=== PATIENT | female | born 1990 | race African-American/Black ===

== ENCOUNTER 2022-10-25 13:15 | Outpatient (CLI) | payer MEDICAID | END 2022-10-25 13:16 | disposition home or self-care (01) | LOC: CSHMAMMO 13:15 | PROVIDERS: ATTEND Advanced Practice Midwife | DX: N63.41 Unspecified lump in right breast, subareolar (principal); N64.89 Other specified disorders of breast | CPT/HCPCS: 77066; G0279 ==

== ENCOUNTER 2022-10-25 15:29 | Emergency (ER) | payer MEDICAID, SELFPAY ==
[2022-10-25] MEDS ORDERED: Acetaminophen/Codeine 30-300mg Tablet ONE (16:13)
== END 2022-10-25 16:07 | disposition home or self-care (01) ==
LOC: CSHERS 15:29
DX: N61.1 Abscess of the breast and nipple (principal); R92.8 Other abnormal and inconclusive findings on diagnostic imaging of breast; F17.210 Nicotine dependence, cigarettes, uncomplicated
CPT/HCPCS: 99283